=== PATIENT | female | born 1965 | race Caucasian/White ===

== ENCOUNTER → 2020-01-19 | Outpatient (CLI) | payer OTHER ==
[~2020-01-19] MED LIST: NOHOMEMEDICATIONS
== END ==
LOC: M.LAB 11:50
PROVIDERS: ATTEND Internal Medicine Gastroenterology
DX: Z01.812 Encounter for preprocedural laboratory examination (principal); K52.9 Noninfective gastroenteritis and colitis, unspecified; R93.89 Abnormal findings on diagnostic imaging of other specified body structures; R19.4 Change in bowel habit